=== PATIENT | male | born 2000 | race Two or more races ===

== ENCOUNTER 2024-10-30 09:41 | Emergency (ER) | payer OTHER ==
[~2024-10-30] VITALS: Ht 172.7 cm; Wt 72.6 kg
[2024-10-30] MEDS ORDERED: KETOROLAC TROMETHAMINE 60 MG VIAL IM ONE (10:15)
[2024-10-30 10:49] LABS: HEMATOCRIT 44.4 % (39.0-48.0); HEMOGLOBIN 14.9 g/dL (13-16.00); MEAN CELL VOLUME 85.8 fL (80.0-100.00); MEAN CORPUSCULAR HEMOGLOBIN 28.8 pg (27.00-32.0); MEAN CORPUSCULAR HGB CONC 33.6 g/dl (32.0-36.0); PLATELET COUNT 317 K/uL (150-450); RED BLOOD COUNT 5.18 M/uL (4.00-6.00); RED CELL DISTRIBUTION WIDTH 13.3 % (11.5-14.5)
[2024-10-30 11:04] LABS: ALBUMIN 4.6 gm/dL (3.4-5.0); BILIRUBIN TOTAL 0.53 mg/dL (0.3-1.2); CALCIUM 9.6 mg/dL (8.5-10.1); CREATININE SERUM 0.97 mg/dL (0.70-1.30); GFR 95.09; GLOBULINA 3.7 G/DL (2.4-3.5); POTASSIUM 4.37 mEq/L (3.5-5.1); TOTAL PROTEIN 8.3 gm/dL (6.4-8.2)
[2024-10-30] MEDS ORDERED: NORFLEX100MG PO (11:35)
== END 2024-10-30 11:59 | disposition home or self-care (01) ==
LOC: ER 09:41
PROVIDERS: General Practice
DX: S49.82XA Other specified injuries of left shoulder and upper arm, initial encounter (principal); V49.88XA Car occupant (driver) (passenger) injured in other specified transport accidents, initial encounter; Y93.89 Activity, other specified; Y92.89 Other specified places as the place of occurrence of the external cause; Y99.8 Other external cause status